=== PATIENT | female | born 1995 | race Caucasian/White ===

== ENCOUNTER 2024-08-28 19:57 | Emergency (ER) | payer BC, SELFPAY ==
[2024-08-28 20:09] VITALS: BP 123/83
[2024-08-28 20:34] LABS: % Basophils 0.6 % (0-2); % Eosinophils 0.8 % (0-6); % Immature Granulocytes 0.2 % (0-0.5); % Neutrophils 55.4 % (42.2-75.2); Absolute Lymphocytes 1.9 10^3/uL (1.2-3.4); Absolute Monocytes 0.4 10^3/uL (0.1-0.6); Absolute Neutrophils 2.9 10^3/uL (1.4-6.5); Hematocrit 35.4 % (37.0-47.0); Hemoglobin 11.8 g/dL (12.0-16.0); Mean Corp Hgb Conc. 33.3 g/dL (33.0-37.0); Mean Corpuscular Hgb 30.7 pg (27.0-31.0); Mean Corpuscular Volume 92.2 fL (81.0-99.0); Mean Platelet Volume 10.2 fL (7.4-10.4); Nucleated Red Blood Cells % 0 %; Platelet Count 231 10^3/uL (130-400); Red Blood Cell Count 3.84 10^6/uL (4.20-5.40); Red Cell Dist. Width 12.3 % (11.5-14.5); White Blood Cell Count 5.3 10^3/uL (4.8-10.8)
[2024-08-28 20:51] VITALS: BP 124/64
[2024-08-28 20:55] LABS: Troponin I < 0.012 ng/ml
[2024-08-28 20:56] LABS: ALT (SGPT) 14 U/L (0-35); AST (SGOT) 21 U/L (14-36); Albumin 5.2 g/dl (3.5-5.0); Alkaline Phosphatase 28 U/L (38-126); Blood Urea Nitrogen 14 mg/dl (7-17); Calcium 10.2 mg/dl (8.4-10.2); Carbon Dioxide 27 mmol/L (22-30); Chloride 101 mmol/L (98-107); Glucose 114 mg/dl (70-99); Potassium 4.5 mmol/L (3.5-5.1); Sodium 142 mmol/L (135-145); Total Bilirubin 0.3 mg/dl (0.2-1.3); Total Protein 7.8 g/dl (6.3-8.2); eGFR > 60.00
[2024-08-28 20:57] LABS: HCG, Serum Qualitative Screen Negative
[2024-08-28 21:00] VITALS: BP 113/69
--- NOTE | 2024-08-28 21:54 | ED.GENMED ---
History of Present Illness
General
Chief Complaint: Chest Pain
Source: patient
Exam Limitations: none
Time Seen by Provider: 08/28/24 21:25
History of Present Illness
History of Present Illness:
This is a 29 year old female that comes in with c/o chest pain. States that for the past few days she has been getting twinges of chest pain. States that at first she thought is was Indigestion. Then tonight around 4-5pm it started to get worse and
go into her left shoulder and down her arm, into the upper back and neck. State that she felt slightly SOB but was not sure if this was from anxiety. Denies any fever, chills, abd pain, nausea, vomiting, diarrhea, headache, dizziness, urinary
burning.
Past History
Past History
ED Past Medical History: NIDDM, Psychiatric (Anxiety) and Other (Alopecia, )
ED Past Surgical History: Gynecological (Ruptured ovarian cyst with surgery)
Social History
Tobacco: Non-smoker
Alcohol: Occasional
Personal: Single
Living: with family
Review of Systems
Review of Systems
All Other Systems: ROS reviewed and negative except as documented in HPI and ROS
Constitutional: Reports no symptoms; Denies fever or chills
EENT: Reports no symptoms
Respiratory: Reports trouble breathing; Denies cough
Cardiac: Reports chest pain
ABD/GI: Reports no symptoms; Denies abdominal pain, nausea, vomiting or diarrhea
: Reports no symptoms; Denies dysuria, frequency or urgency
Musculoskeletal: Reports no symptoms
Skin: Reports no symptoms
Neurological: Reports no symptoms; Denies dizzy or headache
Psychiatric: Reports no symptoms
Phy Exam
General Physical Exam
General Presentation: well appearing and no apparent distress
General age: appears stated age
General Skin: warm and dry
General Habitus: normal
General Mental: alert
General Hydration: appears well hydrated
ENT Exam
ENT Exam: TM's normal, pharynx normal and neck supple
Eye Exam
Eye Exam: EOMI
Cardiovascular Exam
Cardiovascular Exam: regular rate/rhythm, no edema, no murmur and normal peripheral pulses
Pulmonary Exam
Pulmonary Exam: lungs clear, no respiratory distress, no rales, chest non tender, no crackles, no rhonchi, no wheezing and no cough
Gastrointestinal Exam
Gastrointestinal Exam: normal bowel sounds, non tender, soft, no organomegaly, no pulsatile mass and non distended
Musculoskeletal Exam
Musculoskeletal Exam: full ROM and no edema
Skin Exam
Skin Exam: normal color, warm/dry, no rash and no petechia
Psychiatric Exam
Psychiatric Exam: normal mood/affect
Scores
Heart Score for Chest Pain Patients
STEMI patient?: No
History: Slightly or Non-Suspicious
ECG: Normal
Age: </= 45 years
Risk Factors: No Risk Factors
Troponin: </= Normal Limit
Heart Score for Chest Pain Patients: 0
Heart Score Risk: 2.5% MACE over next 6 weeks
Course
Orders/Labs/Results
Orders:
Orders
08/28/24 19:58
Electrocardiogram (*1) Urgent
Reason for Study: Chest Pain
EKG- Treatment ONCE
08/28/24 19:59
Cardiac Monitoring- Treatment ONCE
IV Insert/Care/Rem.- Treatment PRN
Test Result ONCE
CXR2 [CR Chest - 2 Views ] Urgent
Comment:
Reason For Exam: chest pain
08/28/24 20:19
Complete Blood Count/With Diff Urgent
Comprehensive Metabolic Panel Urgent
HCG, Serum Qualitative Screen Urgent
Comment: Notify provider if positive test present
Troponin I Urgent
08/28/24 21:53
EKG- Treatment ONCE
08/28/24 21:56
Pantoprazole [Protonix] 40 mg PO NOW STA
08/28/24 23:20
Electrocardiogram (*1) Urgent
Reason for Study: Chest Pain
Other Reason for Exam: Repeat with Troponin
08/28/24 23:24
D-Dimer Urgent
Troponin I Urgent
Abnormal Lab Results
08/28/24 08/28/24
20:19 23:24
RBC 3.84 L 10^6/uL
(4.20-5.40)
Hgb 11.8 L g/dL
(12.0-16.0)
Hct 35.4 L %
(37.0-47.0)
D-Dimer 0.51 H ug/mlFEU
(0.00-0.50)
Glucose 114 H mg/dl
(70-99)
Alkaline Phosphatase 28 L U/L
(38-126)
Albumin 5.2 H g/dl
(3.5-5.0)
08/28/24 20:19
08/28/24 20:19
H/H slightly low. Hyperglycemia. Alk phos low. Albumin slightly elevated. Troponin <0.012, HCG negative
Second Troponin <0.012, D-dimer 0.51
Vital Signs
Initial and Last Documented VS:
Initial Vital Signs
Temp Pulse Resp BP Pulse Ox
98.6 F 86 18 123/83 98
08/28/24 20:09 08/28/24 20:09 08/28/24 20:09 08/28/24 20:09 08/28/24 20:09
Last Documented Vital Signs
Temp Pulse Resp BP Pulse Ox
98.6 F 84 16 113/69 100
08/28/24 20:09 08/28/24 22:00 08/28/24 22:00 08/28/24 21:00 08/28/24 21:15
MDM/Problems Addressed
Differential Diagnosis Includes:
Anxiety, Coronary syndrome
MDM/Problems Addressed:
This is a 29 year old female that comes in with c/o chest pain. States that she has been getting twinges of the past few days and then tonight she felt it got worse and went into her left upper back, shoulder, arm and neck.
Will check labs. Chest x-ray.
Back into see patient. Explained that her D-dimer was very slightly elevated. However, patient is not hypoxic and is not tachycardic. HEr Both troponin is normal. Feel that that this is more Anxiety. Will discharge patient home.
Chronic conditions affecting care: Psychiatric illness
Acute Exacerbation and/or Progression of Chronic Illness:
NA
*Radiology
Radiology exam reviewed: radiology read reviewed (Chest-No acute cardiopulmonary process)
*Pulse Oximetry
Patient hypoxic: no
*EKG
Interpreted by ED Provider?: Yes
Heart Rate: 102
Rate: tachycardiac
Rhythm: sinus
Minturn: normal axis
Interval: normal interval
QRS Pattern: normal QRS
Ischemia: no ischemia
*Dryer Feeder Interpretation
Rate: normal
Heart Rate: 94
Rhythm: sinus
*Critical Care Note
Total Time (30-74mins, 75-104mins- exclusive of procedures): Not Applicable
ED Attending Note
-
Portions of this chart may have been created with voice recognition software.� Occasional wrong word or��sound alike� substitutions may have occurred due to the inherent limitations of voice recognition software.
Discharge Plan
Departure
Patient Disposition: Home (Routine Discharge)
Date of Disposition: 08/29/24
Time of Disposition: 00:41
Patient with high blood pressure during this ER visit?: No
Condition: Good
Covid-19: Not Applicable
Discharge Problem:
Chest pain
Instructions: Chest Pain PCP Follow Up, Musculoskeletal Pain
Prescriptions:
New
pantoprazole [Protonix] 40 mg tablet,delayed release (DR/EC)
40 mg PO DAILY Qty: 15 0RF
Referrals:
PRIVATE,PHYSICIAN [Family Provider] -
Activity Restrictions/Additional Instructions:
As discussed,your blood work is normal along with your Chest x-ray ane ECG. Please follow up with the family doctor for further evaluation. You have been given a Prescription for reflux. Please try and stay away from Caffeine as this is hard on the
stomach lining and increases the reflux. You may use Tylenol and Ibuprofen for any discomfort. Heat or ice which ever makes you feel better. IF YOU HAVE ANY OTHER CONCERNS PLEASE RETURN TO THE EMERGENCY ROOM.
Interventions
Interventions:
*Risk Screen - Suicide Last Done: 08/28/24 20:10
*General Assessment Last Done: 08/28/24 20:10
*Neglect/Abuse Screening Last Done: 08/28/24 20:10
Discharge Date and Time
Print Language: [id number]
[2024-08-28] MEDS: PROTONIX 40 MG PO (22:12)
[2024-08-28 22:13] VITALS: BP 113/65
[2024-08-28 23:00] VITALS: BP 120/72
[2024-08-28 23:49] LABS: D-Dimer 0.51 ug/mlFEU (0.00-0.50)
[2024-08-28 23:54] LABS: Troponin I < 0.012 ng/ml
[2024-08-29] VITALS: BP 117/72
== END 2024-08-29 01:03 | disposition home or self-care (01) ==
LOC: EMR 19:57
PROVIDERS: Clinical Nurse Specialist Family Health; EMERGENCY PHYSICIAN Emergency Medicine
DX: R07.89 Other chest pain (principal); M25.512 Pain in left shoulder; M54.6 Pain in thoracic spine; M54.2 Cervicalgia; R06.02 Shortness of breath; F41.9 Anxiety disorder, unspecified; E11.65 Type 2 diabetes mellitus with hyperglycemia
CPT/HCPCS: 99284; 71046; 80053; 84484; 84703; 85025; 85379; 93005